=== PATIENT | female | born 1955 | race Caucasian/White ===

== ENCOUNTER 2024-12-03 19:29 | Observation (INO) ==
--- NOTE | 2024-12-03 19:55 | DR.GENAD ---
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 ROS Review of Systems Constitutional: Other (no compaint) Eyes: No Symptoms Reported ENTM: No Symptoms Reported Respiratoy: No Symptoms Reported Cardiovascular: No Symptoms Reported Gastrointestinal/Abdominal: No Symptoms Reported Genitourinary: Other (king catheter issue) Neurological: No Symptoms Reported Musculoskeletal: No Symptoms Reported Integumentary: No Symptoms Reported Hematologic/Lymphatic: No Symptoms Reported Endocrine: No Symptoms Reported Psychiatric: No Symptoms Reported All Other Systems: Reviewed and Negative PE Vital Signs Vitals: Vital Signs Temperature 97.8 F Pulse Rate 71 Pulse Rate 74 Pulse Rate 71 Pulse Rate 72 Pulse Rate 72 Pulse Rate 73 Pulse Rate 72 Pulse Rate 75 Pulse Rate 76 Pulse Rate 77 Pulse Rate 77 Pulse Rate 75 Respiratory Rate 20 Blood Pressure 127/78 Blood Pressure 127/78 Blood Pressure 127/78 Blood Pressure 146/64 O2 Sat by Pulse Oximetry 95 O2 Sat by Pulse Oximetry 95 O2 Sat by Pulse Oximetry 97 O2 Sat by Pulse Oximetry 97 O2 Sat by Pulse Oximetry 95 O2 Sat by Pulse Oximetry 96 O2 Sat by Pulse Oximetry 95 O2 Sat by Pulse Oximetry 96 O2 Sat by Pulse Oximetry 95 O2 Sat by Pulse Oximetry 94 O2 Sat by Pulse Oximetry 94 O2 Sat by Pulse Oximetry 93 General Limitations: Physical Limitation (right side hemiplegia) General Appearance: In No Apparent Distress Head Head Exam: Normal Inspection, Atraumatic and Normocephalic Eyes Eye exam: Normal Appearance, PERRL and EOMI ENT ENT Exam: Normal Exam Neck Neck Exam: Normal Inspection Chest Chest Inspection: Normal Inspection Respiratory Respiratory Exam: Normal Lung Sounds Bilat Cardiovascular Cardiovascular Exam: Regular Rate Abdominal Exam Abdominal Exam: Normal Inspection Extremities Extremities Exam: Other (contracted r lower extremity) Back Back Exam: Normal Inspection Neurologic Neurological Exam: Alert, Oriented X3 and CN II-XII Intact Psychiatric Psychiatric Exam: Normal Affect MDM Differential Diagnosis Differential Diagnosis: king catheter malpositioned,uti COURSE Treatment Treatment: Has not evaluated the catheter site and the King presentation and found that there was loss of stool in the vaginal area and all around so there was a hole outer cleaning up that need to be done from visually that of a rectal fat vaginal fistula or source. We were able to get study stream of urine out of the King catheter. CT scan of the abdomen pelvis and that was no evidence of any abnormality there in the abdomen there was no acute intra-abdominal abnormality noted. The King catheter was in the decompressed urinary bladder. There was cloudy lithiasis without cholecystitis. There was colonic diverticulosis without diverticulitis. We did a CBC had a slight elevated WBC of 11.9 we did a metabolic panel that was normal we did a urine analysis that showed 2+ protein 4+ blood 3+ leukocyte esterase 10-20 RBCs too numerous to count WBCs trace bacteria. The patient appeared to be a little dehydrated we did give her her normal saline at 125 cc an hour we gave the patient Rocephin initially 1 g IM since we had not spoken to the on-call physician prior to determine that the patient probably needs IV fluids and antibiotics since she failed outpatient treatment for urinary tract infection. I did speak to Dr. Mancia at [id number] and he said that he agreed the patient could get some hydration and treatment for failed outpatient UTI with some IV antibiotics. This patient will be placed on levofloxacin 750 mg IV daily. [facility] Labs Reviewed Laboratory Results Reviewed?: Yes 12/03/24 20:33 12/03/24 20:33 Laboratory: WBC 11.9 X10^3/uL (3.6-10.0) H 12/03/24 20: RBC 4.63 X10^6/uL (3.5-5.4) 12/03/24 20: Hgb 13.0 g/dL (12.0-16.0) 12/03/24 20: Hct 39.1 % (36.0-47.0) 12/03/24 20: MCV 84.6 fL (80.0-100.0) 12/03/24 20: MCH 28.2 pg (27.0-34.0) 12/03/24 20: MCHC 33.3 g/dL (33.0-35.0) 12/03/24 20: RDW 14.3 % (11.6-16.5) 12/03/24 20: Plt Count 232 X10^3/uL (150.0-450.0) 12/03/24 20: MPV 7.2 fL (7.4-11.0) L 12/03/24 20:33 Neut % (Auto) 74.4 % (42.0-75.0) 12/03/24 20: Lymph % (Auto) 18.2 % (21.0-51.0) L 12/03/24 20:33 [place] % (Auto) 4.9 % (0.0-13.0) 12/03/24 20: Eos % (Auto) 1.6 % (0.9-2.9) 12/03/24 20: Baso % (Auto) 0.9 % (0.2-1.0) 12/03/24 20: Neut # (Auto) 8.9 x10^3/uL (2.2-4.8) H 12/03/24 20: Lymph # (Auto) 2.2 X10^3/uL (1.3-2.9) 12/03/24 20: [place] # (Auto) 0.6 x10^3/uL (0.3-0.8) 12/03/24 20: Eos # (Auto) 0.2 x10^3/uL (0.0-0.2) 12/03/24 20: Baso # (Auto) 0.1 X10^3/uL (0.0-0.1) 12/03/24 20: Absolute Nucleated RBC 0.1 /100WBC 12/03/24 20:33 Sodium 136 mmol/L (136-145) 12/03/24 20:33 Corrected Sodium TNP 12/03/24 20: Potassium 3.7 mmol/L (3.5-5.1) 12/03/24 20: Chloride 101 mmol/L (98-107) 12/03/24 20: Carbon Dioxide 30.7 mmol/L (21-32) 12/03/24 20: BUN 9 mg/dL (7-18) 12/03/24: Creatinine 0.50 mg/dL (0.55-1.02) L 12/03/24 20:33 Est GFR (MDRD) Af Amer > 60 (>60) 12/03/24 20:33 Est GFR (MDRD) Non-Af > 60 (>60) 12/03/24 20: Glucose 97 mg/dL (65-99) 12/03/24 20: Calcium 8.3 mg/dL (8.5-10.1) L 12/03/24 20: Corrected Calcium 9.2 mg/dL (8.5-10.1) 12/03/24 20: Total Bilirubin 0.30 mg/dL (0.2-1.0) 12/03/24 20: AST 14 Units/L (15-37) L 12/03/24 20: ALT 16 Units/L (12-78) 12/03/24 20: Alkaline Phosphatase 143 Units/L (46-116) H 12/03/24 20: Total Protein 6.8 g/dL (6.4-8.2) 12/03/24: Albumin 2.9 g/dL (3.4-5.0) L 12/03/24 20: Globulin 3.9 g/dL (2.5-4.5) 12/03/24 20: Albumin/Globulin Ratio 0.7 Ratio (1.1-2.1) L 12/03/24 20:33 Specimen Type Catherized urine 12/03/24 20: Urine Color Straw (YELLOW) 12/03/24: Urine Appearance Hazy (CLEAR) 12/03/24: Urine pH 6.0 (5.0 - 8.0) 12/03/24 20: Ur Specific Orange 1.010 (1.000-1.030) 12/03/24 20: Urine Protein 2+ (NEGATIVE) 12/03/24: Urine Glucose (UA) Negative (NEGATIVE) 12/03/24: Urine Ketones Negative (NEGATIVE) 12/03/24: Urine Blood 4+ (NEGATIVE) 12/03/24: Urine Nitrite Negative (NEGATIVE) 12/03/24: Urine Bilirubin Negative (NEGATIVE) 12/03/24: Urine Urobilinogen Normal (NORMAL) 12/03/24 20: Ur Leukocyte Esterase 3+ (NEGATIVE) 12/03/24 20: Urine RBC 10-20 /HPF (0-3) A 12/03/24: Urine WBC Tntc /HPF (0-5) A 12/03/24 20:21 Ur Squamous Epith Cells Moderate /HPF (NEGATIVE) 12/03/24 20:21 Urine Bacteria Trace /HPF (NEGATIVE) 12/03/24 20:21 Ur Culture Indicated? Yes/culture set up 12/03/24 20:21 Opioid Opioid Risk Tool Total: 0 Total Score Risk Category: Low Risk Copyright: Trejo predicting aberrant behaviors Discharge Plan Diagnosis Discharge Problem: UTI (urinary tract infection), Dehydration Discharge Plan Patient Disposition: ADMITTED INPATIENT Condition: Stable Orders to Discharge Patient Discharge Orders: Transfer (Routine); Ordered 12/03/24 Ordered By: Iker Gaspar
[2024-12-03 20:32] LABS: BLOOD/HEMOGLOBIN,URINE 4+ (NEGATIVE); LEUKOCYTE ESTERASE ,URINE 3+ (NEGATIVE); NITRITES,URINE NEGATIVE (NEGATIVE)
[2024-12-03 20:37] LABS: APPEARANCE,URINE HAZY (CLEAR)
[2024-12-03 20:43] LABS: MEAN PLATELET VOLUME 7.2 fL (7.4-11.0)
[2024-12-03 20:44] LABS: SQUAMOUS EPITHELIAL CELL,UR MODERATE /HPF (NEGATIVE)
[2024-12-03 20:47] LABS: RED CELL DISTRIBUTION WIDTH 14.3 % (11.6-16.5)
[2024-12-03 20:58] LABS: COR CA(FOR HYPOALB) 9.2 mg/dL (8.5-10.1); CREATININE 0.50 mg/dL (0.55-1.02); eGFR NON BLACK RACES > 60 (>60)
--- NOTE | 2024-12-03 21:14 | CT ---
EXAM: ABDOMEN/PELVIS W/O CON HISTORY: C/O FECAL MATTER IN [place]. HOME HEALTH NURSE CONCERNED PT MAY HAVE A FISTULA.; COMPARISON: None. TECHNIQUE: Non-contrasted axial CT images of the abdomen and pelvis were obtained and reformatted into coronal and sagittal planes for further evaluation. Radiation dose: 799.50 mGy-cm total DLP FINDINGS: Lung bases are clear. Stomach appears normal. Solid visceral organs of the upper abdomen are unremarkable. 4 calcified gallstones in the dependent portion of the gallbladder with no overt imaging findings of acute cholecystitis. No intra or extrahepatic biliary dilatation. Unremarkable appearance of the kidneys. No hydronephrosis, hydroureter or ureteral calculus. [place] catheter tip is in the decompressed urinary bladder which is otherwise unremarkable in appearance. Colonic diverticulosis without diverticulitis. Otherwise, unremarkable appearance of the small and large bowel. Left paraumbilical fat containing hernia without inflammatory changes. Reproductive structures are unremarkable. No evidence of acute appendicitis. No pneumoperitoneum. No significant fluid collection. No adenopathy. No acute osseous abnormality. IMPRESSION: 1. No acute intra-abdominal abnormality detected. 2. [place] catheter tip is in the decompressed urinary bladder which is otherwise unremarkable in appearance. 3. Cholelithiasis with no imaging findings of acute cholecystitis. 4. Colonic diverticulosis without diverticulitis. THIS IS AN ELECTRONICALLY VERIFIED FINAL REPORT 12/03/2024 9:10 PM - Electronically signed by Jose Alberto Jones MD
[2024-12-03] MEDS ORDERED: XYLOCAINE 1 % (PLAIN) ONE (21:24)
[2024-12-03] MEDS ORDERED: ROCEPHIN VIAL 1 GRAM ONE (21:24)
[2024-12-03] MEDS: ROCEPHIN VIAL 1 GRAM IM ONE (21:27)
[2024-12-03] MEDS: LEVAQUIN PREMIX IV 750 MG 750 MG/150 ML BAG IV SCH (22:16)
[2024-12-03] MEDS ORDERED: ULTRAM PO PRN (23:03)
[2024-12-03 23:33] VITALS: BMI 36.7
[2024-12-03] MEDS: NS 1,000 ML IV 1,000 ML IV SCH (23:35)
[2024-12-04] MEDS ORDERED: NovoLIN R (or HumuLIN R) SUBCUT PRN (00:22)
[2024-12-04 07:36] LABS: MEAN PLATELET VOLUME 7.4 fL (7.4-11.0); RED CELL DISTRIBUTION WIDTH 14.4 % (11.6-16.5)
[2024-12-04 07:42] VITALS: RESP 19
[2024-12-04 07:45] LABS: COR CA(FOR HYPOALB) 9.5 mg/dL (8.5-10.1); CREATININE 0.44 mg/dL (0.55-1.02); eGFR NON BLACK RACES > 60 (>60)
[2024-12-04] MEDS: ELIQUIS PO SCH (08:09)
[2024-12-04] MEDS: DETROL LA 4 MG CAP EXT REL PO SCH (08:09)
[2024-12-04] MEDS: LOPRESSOR TAB 50 MG PO SCH (08:09)
[2024-12-04] MEDS: ZOLOFT PO SCH (08:10)
[2024-12-04] MEDS: PULMICORT NEB TX 0.5 MG NEB SCH (08:59)
[2024-12-04] MEDS ORDERED: PATIENT'S HOME MEDICATION (Fluticasone-Umeclidin-Vilanter [Trelegy Ellipta] 100-62.5-25 mc IN SCH (09:00)
[2024-12-04 11:58] VITALS: BP 139/67; PULSE 73; TEMP 97.6; O2SAT 94
[2024-12-04] MEDS ORDERED: SNACK - Diabetic Appropriate PO SCH (20:00)
[2024-12-04] MEDS ORDERED: ZOCOR TAB 20 MG PO SCH (21:00)
== END 2024-12-04 13:55 | disposition home or self-care (01) ==
LOC: ER 19:29 → MED/SURG 19:29
PROVIDERS: ADMIT Obstetrics & Gynecology Obstetrics; ATTEND Obstetrics & Gynecology Obstetrics
DX: E86.0 Dehydration; B96.1 Klebsiella pneumoniae [K. pneumoniae] as the cause of diseases classified elsewhere; K57.30 Diverticulosis of large intestine without perforation or abscess without bleeding; F32.89 Other specified depressive episodes; J44.9 Chronic obstructive pulmonary disease, unspecified; G81.91 Hemiplegia, unspecified affecting right dominant side; Z16.11 Resistance to penicillins; K80.80 Other cholelithiasis without obstruction; E83.51 Hypocalcemia; N39.0 Urinary tract infection, site not specified; Z79.01 Long term (current) use of anticoagulants; Z16.19 Resistance to other specified beta lactam antibiotics; Z86.69 Personal history of other diseases of the nervous system and sense organs; Z16.29 Resistance to other single specified antibiotic; E78.5 Hyperlipidemia, unspecified; I10 Essential (primary) hypertension; Z87.440 Personal history of urinary (tract) infections; Z16.23 Resistance to quinolones and fluoroquinolones; E11.65 Type 2 diabetes mellitus with hyperglycemia; Z58.89 Other problems related to physical environment